=== PATIENT | male | born 1955 | race Caucasian/White ===

== ENCOUNTER → 2021-03-05 | Outpatient (CLI) | payer MEDICARE ==
--- NOTE | 2021-03-06 15:37 | KCIC ---
EXAMINATION: XR HIP (WITH OR WITHOUT PELVIS) RIGHT 1 VIEW, XR LUMBAR SPINE 2-3V CLINICAL HISTORY: New onset of right hip and thigh pain, some numbness. One month. TECHNIQUE: XR HIP (WITH OR WITHOUT PELVIS) RIGHT 1 VIEW, XR LUMBAR SPINE 2-3V Number of Images/Views: 3 L-spine, 2 right hip COMPARISON: None FINDINGS: L-SPINE: Normal anatomic alignment. No evidence of acute fracture or spondylolisthesis. Mild anterior wedging of the L1 vertebral body with irregularity at the anterior superior endplate, possibly relat ed to prominent Schmorl's node or remote compression fracture. [id number] disc space narrowing, greatest at L1-2. Mild facet arthropathy. SI joints maintained. Vascular calcifications. RIGHT HIP: Relatively well-maintained in the right hip. Small subchondral cysts in the superior aceta bulum. Degenerative changes in the left hip incompletely evaluated. Pubic symphysis maintained. No ac katy fracture. Pelvic phleboliths. IMPRESSION: Multilevel lumbar degenerative disc disease, greatest at L1-2. Mild degenerative changes right hip. Electronically signed by: Pablo Shell DO (03/06/2021 3:34 PM) [id number]
== END ==
LOC: KCIC 15:41
PROVIDERS: ATTEND Family Medicine
DX: M16.11 Unilateral primary osteoarthritis, right hip (principal); M51.36 Other intervertebral disc degeneration, lumbar region; M25.851 Other specified joint disorders, right hip
CPT/HCPCS: 72100; 73501

== ENCOUNTER → 2021-05-13 | Outpatient (CLI) | payer MEDICARE ==
--- NOTE | 2021-05-13 16:55 | KCIC ---
MR LUMBAR SPINE WO [id number] Date: 05/13/2021 2:22 PM Indication: RIGHT LEG NUMBNESS AND WEAKNESS, LOW BACK PAIN Comparison: None. Technique: Multi-planar multi-weighted magnetic resonance imaging of the lumbar spine was performed w ithout intravenous contrast using the standard lumbar spine protocol. FINDINGS: The lumbar spine is normally aligned. No acute fracture. Mild chronic height loss at L1 Mild to moder ate multilevel degenerative disc desiccation and disc height loss. Trace degenerative endplate edema at L1-2. The conus terminates at a normal level. No abnormal signal is seen within the visualized distal spina l cord. No clumping of intrathecal nerve roots. No soft tissue abnormality in the visualized abdomen or pelvis. T12-L1: No disc bulge. No facet arthropathy. No significant spinal stenosis or neural foraminal narro wing. L1-L2: Disc bulge with right paracentral/proximal foraminal inferiorly migrating extrusion which exte nds 9 mm below the disc space. Severe narrowing of the right lateral recess with mass effect on the d escending right L2 nerve root. Mild spinal canal stenosis. Moderate bilateral neural foraminal narrow ing. Mild facet arthropathy. L2-L3: Disc bulge. Moderate facet arthropathy. No significant spinal stenosis. Moderate bilateral bimal ral foraminal narrowing. L3-L4: Disc bulge. Moderate facet arthropathy. Mild spinal stenosis and lateral recess narrowing. Mod erate bilateral neural foraminal narrowing. L4-L5: Disc bulge. Severe facet arthropathy. No spinal stenosis. Mild to moderate bilateral neural fo raminal narrowing. L5-S1: Disc bulge. Severe facet arthropathy. No significant spinal stenosis. Mild right neural forami nal narrowing. IMPRESSION: Lumbar spondylosis, worst at L1-2 where a disc extrusion severely narrows the right lateral recess an d exerts mass effect on the descending right L2 nerve root. Electronically signed by: Jhon Sidhu MD (05/13/2021 4:52 PM) [id number]
== END ==
LOC: KCIC MRI 13:45
PROVIDERS: ATTEND Family Medicine
DX: M47.27 Other spondylosis with radiculopathy, lumbosacral region (principal); M48.07 Spinal stenosis, lumbosacral region; R20.0 Anesthesia of skin; R29.898 Other symptoms and signs involving the musculoskeletal system
CPT/HCPCS: 72148